=== PATIENT | male | born 1990 | race Caucasian/White ===

== ENCOUNTER 2020-05-24 19:54 | Emergency (ER) | payer OTHER ==
[2020-05-24] MEDS ORDERED: Lidocaine 1% 10 ML MDV INJECT ONE (21:23)
[2020-05-24] MEDS ORDERED: Diphtheria,Pertussis(Acell),Tetanus Vaccine 0.5 ML Syringe IM ONE (21:23)
--- NOTE | 2020-05-24 22:09 | EDM.PDOC ---
ED HPI GENERAL MEDICAL PROBLEM - General Chief Complaint: Laceration Stated Complaint: LT HAND LACERATION Time Seen by Provider: 05/24/20 21:11 Source of Information: Reports: Patient History Limitations: Reports: No Limitations - History of Present Illness INITIAL COMMENTS - FREE TEXT/NARRATIVE: History of present illness: [Patient is 30-year-old male who presents with a laceration, 2 of them to the dorsal aspect of his left hand. He states that he was moving a propane tank and cut his left hand on a sharp metal edge. Unclear when his last tetanus was. He was pressure to stop the bleeding at home. Denies any other injuries or complaints. States that he has normal movement of the left hand, has not noticed any deficits associated with the laceration.] Review of systems: As per history of present illness and below otherwise all systems reviewed and negative. Past medical history: As per history of present illness and as reviewed below otherwise noncontributo ry. Surgical history: As per history of present illness and as reviewed below otherwise noncontributory. Social history: No reported history of drug or alcohol abuse. Family history: As per history of present illness and as reviewed below otherwise noncontributory. Physical exam: General: Awake, alert, no acute distress, A&O X3. HEENT: Atraumatic, normocephalic, pupils reactive, negative for conjunctival pallor or scleral icterus, mucous membranes moist, throat clear, neck supple, nontender, trachea midline. Lungs: Clear to auscultation, breath sounds equal bilaterally, chest nontender. Heart: RRR, normal S1S2, no JVD. Abdomen: Soft, nondistended, nontender. Negative for masses or hepatosplenomegaly. Pelvis: Stable nontender. Genitourinary: Deferred. Rectal: Deferred. SKIN: 2 parallel vertical lacerations to the dorsal aspect of the left hand, the first is in between the MCP joint of the second and third finger, the other laceration is between the third and fourth MCP joint. Please see laceration repair for details. Hand is neurovascular intact, all fingers normal capillary refill, normal range of motion and strength and sensation Extremities: no edema, Neurovascular unremarkable. Neuro: Motor and sensory grossly intact throughout. Exam nonfocal. Diagnostics: [] Therapeutics: [] Impression: [] Plan: [] Definitive disposition and diagnosis as appropriate pending reevaluation and review of above. Left Hand Pain Score (Numeric/FACES): 5 - Related Data Allergies Allergy/AdvReac Type Severity Reaction Status Date / Time No Known Allergies Allergy Verified 05/24/20 21:08 Home Meds: Home Meds . [No Known Home Meds] 05/24/20 [History] Past Medical History - Infectious Disease History Infectious Disease History: Reports: Chicken Pox Social & Family History - Family History Family Medical History: Noncontributory - Recreational Drug Use Recreational Drug Use: No ED ROS GENERAL - Review of Systems Review Of Systems: Comprehensive ROS is negative, except as noted in HPI. ED EXAM, SKIN/RASH Exam: See Below (see h and p) ED SKIN PROCEDURES - Laceration/Wound Repair Left Upper Hand Appearance: Subcutaneous Distal NVT: Neuro & Vascular Intact, No Tendon Injury Anesthetic Type: Local Local Anesthesia - Lidocaine (Xylocaine): 1% Plain Local Anesthetic Volume: 5cc Skin Prep: Chlorhexidine (Hibiciens), Saline Saline Irrigation (cc's): 100 Exploration/Debridement/Repair: Wound Explored, Explored to Base, No Foreign Material Found Closed with: Sutures Lac/Wound length In cm: 3 (2nd lac is 2 cm) Suture Size: 4-0 # of Sutures: 7 (2nd lac got 5 sutures) Suture Type: Nylon Sterile Dressing Applied: Nurse Tetanus Status Addressed: Yes Complications: No Progress/Comments: 2 parallel lacerations, a total of 12 sutures, 7 in #1, 5 in #2 lac. other, patient tolerated well Course - Vital Signs Text/Narrative:: Patient tolerated laceration repair well, told him he need to return for suture removal in about 1 week. He is comfortable this plan and agreeable with for discharge home. Last Recorded V/S: Last Vital Signs Temp 36.7 C 05/24/20 21:01 Pulse 64 05/24/20 21:01 Resp 14 05/24/20 21:01 BP 125/83 05/24/20 21:01 Pulse Ox 97 05/24/20 21:01 - Orders/Labs/Meds Orders: Active Orders 24 hr Category Date Time Status Communication Order [RC] STAT Care 05/24/20 21:23 Active Vaccines to be Administered [RC] PER UNIT ROUTINE Care 05/24/20 21:23 Active Meds: Medications Discontinued Medications Generic Name Dose Route Start Last Admin Trade Name Freq PRN Reason Stop Dose Admin Diphtheria/Tetanus/Acell Pertussis 0.5 ml 05/24/20 21:23 05/24/20 21:39 Adacel IM 05/24/20 21:24 0.5 ml .ONCE ONE Administration Lidocaine HCl 10 ml 05/24/20 21:23 05/24/20 21:41 Xylocaine 1% INJECT 05/24/20 21:24 Not Given ONETIME ONE Lidocaine HCl Confirm 05/24/20 21:28 05/24/20 21:40 Xylocaine-Mpf 1% Administered 05/24/20 21:29 5 ml Dose Administration 5 ml .ROUTE .STK-MED ONE Lidocaine HCl Confirm 05/24/20 21:32 05/24/20 21:40 Xylocaine-Mpf 1% Administered 05/24/20 21:33 Not Given Dose 5 ml .ROUTE .STK-MED ONE Departure - Departure Time of Disposition: 22:10 Disposition: Home, Self-Care 01 Condition: Good Clinical Impression: Laceration of hand - Discharge Information Instructions: Sutured Wound Care Referrals: PCP,None [Primary Care Provider] - Additional Instructions: Return to the ER in 1 week for suture removal. Follow-up with PCP. The following information is given to patients seen in the emergency department who are being discharged to home. This information is to outline your options for follow-up care. We provide all patients seen in our emergency department with a follow-up referral. The need for follow-up, as well as the timing and circumstances, are variable depending upon the specifics of your emergency department visit. If you don't have a primary care physician on staff, we will provide you with a referral. We always advise you to contact your personal physician following an emergency department visit to inform them of the circumstance of the visit and for follow-up with them and/or the need for any referrals to a consulting specialist. The emergency department will also refer you to a specialist when appropriate. This referral assures that you have the opportunity for follow-up care with a specialist. All of these measure are taken in an effort to provide you with optimal care, which includes your follow-up. Under all circumstances we always encourage you to contact your private physician who remains a resource for coordinating your care. When calling for follow-up care, please make the office aware that this follow-up is from your recent emergency room visit. If for any reason you are refused follow-up, please contact the [facility] Emergency Department at and asked to speak to the emergency department charge nurse. Sepsis Event Note (ED) - Evaluation Sepsis Screening Result: No Definite Risk - Focused Exam Vital Signs: Vital Signs Temp Pulse Resp BP Pulse Ox 05/24/20 21:01 36.7 C 64 14 125/83 97 - My Orders Last 24 Hours: My Active Orders 05/24/20 21:23 Communication Order [RC] STAT Vaccines to be Administered [RC] PER UNIT ROUTINE - Assessment/Plan Last 24 Hours: My Active Orders 05/24/20 21:23 Communication Order [RC] STAT Vaccines to be Administered [RC] PER UNIT ROUTINE
== END 2020-05-24 22:35 | disposition home or self-care (01) ==
LOC: MW.ED 19:54
DX: S61.412A Laceration without foreign body of left hand, initial encounter (principal); Z23 Encounter for immunization; W26.8XXA Contact with other sharp object(s), not elsewhere classified, initial encounter
CPT/HCPCS: 12002; 90471; 90715; 99282; J2001